=== PATIENT | female | born 1995 | race Caucasian/White ===

== ENCOUNTER → 2024-08-15 | Outpatient (CLI) | payer SELFPAY ==
[2024-08-22 08:44] LABS: HPV Reflexed? NOT INDICATED
== END | disposition home or self-care (01) ==
LOC: LABSPEC 16:13
PROVIDERS: Referring Provider Obstetrics & Gynecology; Visit Provider Obstetrics & Gynecology
DX: Z12.4 Encounter for screening for malignant neoplasm of cervix (principal)
CPT/HCPCS: 88175; G0145

== ENCOUNTER → 2024-08-21 | Outpatient (CLI) | payer SELFPAY ==
--- NOTE | 2024-08-21 13:42 | US_ITS ---
PROCEDURE: PELVIC W/ TRANSVAGINAL REASON FOR EXAM: Right-sided pelvic pain. TECHNIQUE: Transabdominal and transvaginal pelvic ultrasound COMPARISON: None. FINDINGS: Measurements: Uterus: 8.6 cm x 5 cm x 4.2 cm with a volume of 94.6 mL Endometrial Thickness: 9.8 mm Right Ovary: 3.7 cm x 2.3 cm x 1.7 cm with a volume of 7.45 mL. Left Ovary: 3.7 cm x 2.2 cm x 2 cm with a volume of 8.74 mL. TRANSABDOMINAL: Uterus: Normal size, myometrial echotexture, and contour. Nabothian cyst. Endometrium: Unremarkable. Right ovary: Normal size and echotexture. Left ovary: Normal size and echotexture. No large pelvic mass identified. Transvaginal sonography was performed to better visualize the endometrium. TRANSVAGINAL: Uterus: Anteverted. Normal contour and myometrial echotexture. Endometrium: Normal echotexture. Right ovary: Normal size and echotexture. Left ovary: Normal size and echotexture. Other adnexal findings: None. Cul-de-sac: Trace amount of free fluid is seen in the cul-de-sac most likely physiological. No tenderness. US/Pelvic w/ Transvaginal IMPRESSION: NORMAL TRANSABDOMINAL AND TRANSVAGINAL PELVIC ULTRASOUND. Reading Location: [id number]
== END | disposition home or self-care (01) ==
PROVIDERS: Referring Provider Obstetrics & Gynecology; Visit Provider Obstetrics & Gynecology
DX: R10.31 Right lower quadrant pain (principal)
CPT/HCPCS: 76830; 76856